=== PATIENT | female | born 1955 | race Caucasian/White ===

== ENCOUNTER 2016-07-20 07:30 | Inpatient (IN) | payer BC ==
[2016-07-19 10:24] LABS: BASOPHILS 0.3 %; BASOPHILS ABSOLUTE 0.03 10/3/uL (0.0-0.16); EOSINOPHILS 1.5 %; EOSINOPHILS ABSOLUTE 0.17 10/3/uL (0.0-0.53); HEMATOCRIT 42.2 % (36.0-48.0); IMMATURE GRANULOCYTES 0.3 %; IMMATURE GRANULOCYTES ABSOLUTE 0.03 10/3/uL (0.0-0.11); LYMPHOCYTES ABSOLUTE 2.88 10/3/uL (0.67-4.30); MEAN CORPUS HGB CONC 33.2 g/dL (32.0-36.0); MEAN CORPUSCULAR HEMOGLOB 29.2 pg (26.0-34.0); MEAN CORPUSCULAR VOLUME 88.1 fL (80-100); MONOCYTES 8.7 %; NEUTROPHILS 64.2 %; PLATELET COUNT 316 10/3/uL (150-400); RBC DISTRIBUTION WIDTH 14.3 % (12.0-16.0); RED CELL COUNT 4.79 10/6/uL (4.0-5.6); WHITE BLOOD CELLS 11.5 10/3/uL (4.5-10.5)
[2016-07-19 10:25] LABS: MANUAL DIFF NO %
[2016-07-19 10:31] LABS: INTERNATIONAL NORMAL RATI 1.1 UNITS (-); PROTIME (NOT ORD) 13.9 SEC (12.0-14.5)
[2016-07-19 10:41] LABS: A/G RATIO 0.9 (0.7-1.9); ALBUMIN 3.4 G/DL (3.5-5.0); ALKALINE PHOSPHATASE 108 U/L (45-117); BUN (BLOOD UREA NITROGEN) 11 MG/DL (6-23); CHLORIDE, SERUM 106 MMOL/L (96-112); CO2 (CARBON DIOXIDE) 26 MMOL/L (24-34); CREATININE 0.66 MG/DL (0.55-1.02); GFR AFRICAN AMERICAN 111 ML/MIN (>=60); GFR NON AFRICAN AMERICAN 95 ML/MIN (>=60); GLOBULIN 3.8 G/DL (2.5-4.1); GLUCOSE, SERUM 94 MG/DL (60-99); POTASSIUM, SERUM 4.7 MMOL/L (3.5-5.3); SGOT(AST) 24 U/L (5-40); SGPT(ALT) 35 U/L (5-65); SODIUM, SERUM 142 MMOL/L (135-148); TOTAL BILIRUBIN 0.5 MG/DL (0-1.2); TOTAL PROTEIN 7.2 G/DL (6.0-8.5)
[2016-07-19 11:25] LABS: ASCORBIC ACID (UR NOT ORDER) NEG (NEG); BILIRUBIN, URINE NEGATIVE (NEG); KETONE, URINE NEGATIVE (NEG); LEUKOCYTE ESTERASE(NOT OR NEG (NEG); WBC (NOT ORDERED) (RFLEX) 1 (0-5)
--- NOTE | ~2016-07-20 | DS ---
Discharge Summary [facility] [address] [place]. [address] NAME: NATE ISIDRO : 53 STATUS : DIS IN PAT#: [id number] AGE: 60 ADM/REG DATE : 07/20/16 MR#: [id number] REPORT SERV DATE: 07/30/16 DICTATED BY: ARMANI RAMIREZ JR. DATE: 07/29/16 REPORT STATUS : Draft TRANSCRIBED BY: EDISON DATE: 07/29/16 Data Collection from hospitalization DISCHARGE DIAGNOSES: 1. Right upper lobe non-small cell lung cancer. 2. Chronic obstructive pulmonary disease. 3. Thrombophlebitis. 4. Hypertension. 5. Hyperlipidemia. 6. Diabetes mellitus. CONSULTATIONS: None. PROCEDURES PERFORMED: Bronchoscopy, right thoracoscopy with right upper lobectomy with en bloc resection of right lower lobe superior segment. Complete mediastinal lymph node dissection bella stations 4R, 7, 9, 10R, 11R, and intercostal block 07/20/2016. PATHOLOGY: Right upper lobe and superior segment lower lobe lobectomy, combined large-cell neuroendocrine carcinoma, includes component of adenocarcinoma lymph nodes. #7 node dissection 4 lymph node fragments negative for carcinoma; lymph node 11R node biopsy, 1 lymph node negative for carcinoma; lymph node 10R node biopsy 1 lymph node negative for carcinoma; lymph node 4R node dissection, 4 lymph node fragments negative for carcinoma. MEDICATIONS: Aspirin 81 mg daily, Nexium 20 mg daily as needed, Lopressor 12.5 mg twice daily, Chantix 1 mg twice daily, Glucophage 500 mg with breakfast, ProAir two puffs every 4 hours as needed, Symbicort 2 puffs twice daily, Crestor 10 mg at bedtime, vitamin D3 2000 units daily, super B complex 1 every morning, Percocet 5/325 one or two every 4-6 hours as needed. CONDITION AT DISCHARGE: Upon discharge, she did appear to be doing well and had no complaints. DISPOSITION: She had been discharged home to continue a 4 g sodium, low-cholesterol, no concentrated carbohydrate, 1800-calorie ADA diet with activity as discussed. She was to follow up with me on 07/26/2016, follow up with her primary care physician as needed. Home health care was in place upon discharge. HOSPITAL COURSE: This 60-year-old female had presented to her primary care physician, with shortness breath, cough, fatigue, and unexplained weight loss. She was treated for a presumed pneumonia; however, when her symptoms did not improve with steroid and antibiotic therapy, a chest x-ray was obtained which noted a right lung abnormality. A CT of the chest followed the chest x-ray which demonstrated a large right upper lobe spiculated mass measuring 5.4 x 4.4 x 3.4 cm concerning for malignancy. There was also borderline 10 mm lymph nodes within the right hilum in the anterior mainstem bronchus. She was seen at the beginning of June at the [facility] and due to the size of the tumor a PET CT could not be done. She had a CT-guided needle biopsy in the first week of June with final pathology pending at that time. However, it was suggestive of malignant process. She was now admitted for surgery and further evaluation. Upon admission to the hospital, she Discharge Summary [facility] [address] [facility] [place]. [address] NAME: NATE ISIDRO : 53 STATUS : DIS IN PAT#: [id number] AGE: 60 ADM/REG DATE : 07/20/16 MR#: [id number] REPORT SERV DATE: 07/30/16 DICTATED BY: ARMANI RAMIREZ JR. DATE: 07/29/16 REPORT STATUS : Draft TRANSCRIBED BY: EDISON DATE: 07/29/16 had been taken to the operating room where she did undergo the above procedure. She had tolerated this well and was transferred to the recovery room. On postop day #1, she was awake and alert, and did appear to be doing well postoperatively. Her O2 saturation on room air was at 94%. It was felt that she may need to go home with a chest tube in place. She did have good pain control. On postop day #2, she was afebrile and her vital signs had remained stable. Her chest x-ray was noted to have been improved. On postop day 3, she remained in stable condition and the epidural was removed and she was to be discharged home with a chest tube in place with home health care. Arrangements were made for the patient to have home health care and due to her stable condition, she was then discharged with the above instructions. Information collected by: Oh CorbinIBradyT. I submit the above information as my discharge summary. GONZÁLEZ/EDISON Armani Ramirez Jr., M.D. / [id number] CC: Armani Ramirez Jr., M.D.
--- NOTE | ~2016-07-20 | OP ---
Record Of Operation [facility] [address] [place]. [address] NAME: NATE ISIDRO : 53 STATUS : ADM IN PAT#: [id number] AGE: 60 ADM/REG DATE : 07/20/16 MR#: [id number] REPORT SERV DATE: 07/21/16 DICTATED BY: ARMANI TORRES JR. DATE: 07/20/16 REPORT STATUS : Draft TRANSCRIBED BY: MODMiranda DATE: 07/20/16 DATE OF PROCEDURE: 07/20/2016 PREOPERATIVE DIAGNOSES: Right upper lobe non-small cell lung cancer, chronic obstructive pulmonary disease, thrombophlebitis, hypertension, and hyperlipidemia. POSTOPERATIVE DIAGNOSES: Right upper lobe non-small cell lung cancer, chronic obstructive pulmonary disease, thrombophlebitis, hypertension, and hyperlipidemia. NAME OF OPERATION: Bronchoscopy, right thoracoscopy with right upper lobectomy with en bloc resection of right lower lobe superior segment, complete mediastinal lymph node dissection. Dave stations 4R, 7, 9, 10R, 11R, and intercostal block. RESIDENT SURGEON: Saul Blackburn MD. TINT LAYER: Mine Yeung. ANESTHESIA: General endotracheal. ANESTHESIOLOGIST: Luc Quintero M.D. FINDINGS: The patient was noted to have extremely large tumor contained within the right upper lobe. The superior segment of the right lower lobe was adherent to the tumor and is difficult to tell whether this is an inflammatory adherence or whether tumor was crossing the fissure. The only way to get an adequate margin was to take the superior segment of the right lower lobe with the right upper lobe. The lung tissue was extremely thin related to her severe COPD. This appeared to be diffusely thin throughout all lobes. We were able to resect this thoracoscopically, but has enlarged the anterior trocar incision to get the tumor out. Grossly, margins were negative. The hilar lymph nodes had some suspicious features to them. Final pathology is pending. DETAILS OF OPERATION: After adequate general anesthesia, the patient was intubated. Bronchoscopy was performed noting no contraindications to resection. There are no endobronchial lesions. Mucous secretions were evacuated. A left-sided double-lumen endotracheal tube was then placed. The patient was then positioned in the left lateral decubitus position. The right chest was prepped and draped in routine sterile fashion. A small incision was made overlying the lower intercostal space. A separate anterior trocar incision was also made. Through these two incision sites, above findings were noted. There were a few small adhesions, which were taken down. The right upper lobe tumor was extremely large, but it was felt like we still could do this thoracoscopically. The inferior pulmonary ligament was taken down. The hilar structures were then dissected out. The right superior pulmonary vein was then dissected out and identified. The middle lobe branch was preserved while transecting the right upper lobe branch. This was done with a vascular stapler. The pulmonary arterial branches were divided with a vascular stapler. The bronchus was divided with a CELINE stapler. The fissure was then divided with multiple firings of CELINE stapler with tissue reinforcements. The specimen was placed in a specimen bag and Record Of Operation [address] [address] NAME: NATE ISIDRO : 53 STATUS : ADM IN [facility]#: [id number] AGE: 60 ADM/REG DATE : 07/20/16 MR#: [id number] REPORT SERV DATE: 07/21/16 DICTATED BY: ARMANI TORRES JR. DATE: 07/20/16 REPORT STATUS : Draft TRANSCRIBED BY: EDISON DATE: 07/20/16 brought through the anterior trocar site. Nodes from the right paratracheal, subcarinal, hilar, and inferior pulmonary ligament regions were removed. Adequate hemostasis was obtained. The chest was thoroughly irrigated with sterile water. A 20-Austrian chest tube was placed. The lung was reinflated. The right middle lobe was ensured that it was not twisted. The middle lobe vein was in its normal anatomical position. The incisions were closed with running Vicryl sutures. The skin was closed with running monofilament suture. A Dermabond dressing was applied. The procedure was terminated at this point. The patient tolerated the procedure well and taken back to recovery room in stable condition. JACOB/EDISON Armani Torres Jr., M.D. / [id number] CC: Carlos Lamb Jr.key, LACE SEWER
[~2016-07-20 07:30] MED LIST: ASAB PO; CHANTIX1 PO; CRESTOR10 PO; GLUCPH PO; NEXIUM20 M1 PO; PROAIRRESP INH; SUPER B COMP PO; SYMBICORT 160/41 INH INH; VITAMIN D31000 UNIT PO
[2016-07-20 15:18] LABS: BASOPHILS 0.1 %; BASOPHILS ABSOLUTE 0.02 10/3/uL (0.0-0.16); EOSINOPHILS 0.1 %; EOSINOPHILS ABSOLUTE 0.02 10/3/uL (0.0-0.53); HEMATOCRIT 40.3 % (36.0-48.0); HEMOGLOBIN 13.5 g/dL (12.0-16.0); IMMATURE GRANULOCYTES 0.3 %; IMMATURE GRANULOCYTES ABSOLUTE 0.06 10/3/uL (0.0-0.11); LYMPHOCYTES 5.6 %; LYMPHOCYTES ABSOLUTE 1.08 10/3/uL (0.67-4.30); MEAN CORPUS HGB CONC 33.5 g/dL (32.0-36.0); MEAN CORPUSCULAR HEMOGLOB 29.5 pg (26.0-34.0); MEAN CORPUSCULAR VOLUME 88.2 fL (80-100); MEAN PLATELET VOLUME 9.6 fL (9.2-13.0); MONOCYTES 1.1 %; MONOCYTES ABSOLUTE 0.22 10/3/uL (0.21-1.20); NEUTROPHILS 92.8 %; NEUTROPHILS ABSOLUTE 18.04 10/3/uL (2.02-8.40); PLATELET COUNT 288 10/3/uL (150-400); RBC DISTRIBUTION WIDTH 14.2 % (12.0-16.0); RED CELL COUNT 4.57 10/6/uL (4.0-5.6)
[2016-07-20 15:20] LABS: MANUAL DIFF NO %; WHITE BLOOD CELLS 19.4 10/3/uL (4.5-10.5)
[2016-07-20 15:31] LABS: BUN (BLOOD UREA NITROGEN) 13 MG/DL (6-23); CHLORIDE, SERUM 106 MMOL/L (96-112); CO2 (CARBON DIOXIDE) 24 MMOL/L (24-34); CREATININE 0.64 MG/DL (0.55-1.02); GFR AFRICAN AMERICAN 112 ML/MIN (>=60); GFR NON AFRICAN AMERICAN 96 ML/MIN (>=60); POTASSIUM, SERUM 4.7 MMOL/L (3.5-5.3); SODIUM, SERUM 139 MMOL/L (135-148)
[2016-07-20 15:32] LABS: GLUCOSE, SERUM 141 MG/DL (60-99)
[2016-07-21 06:15] LABS: BASOPHILS 0.1 %; BASOPHILS ABSOLUTE 0.02 10/3/uL (0.0-0.16); EOSINOPHILS 0.1 %; EOSINOPHILS ABSOLUTE 0.01 10/3/uL (0.0-0.53); HEMATOCRIT 39.9 % (36.0-48.0); HEMOGLOBIN 13.3 g/dL (12.0-16.0); IMMATURE GRANULOCYTES 0.5 %; IMMATURE GRANULOCYTES ABSOLUTE 0.09 10/3/uL (0.0-0.11); LYMPHOCYTES 15.4 %; LYMPHOCYTES ABSOLUTE 2.88 10/3/uL (0.67-4.30); MEAN CORPUS HGB CONC 33.3 g/dL (32.0-36.0); MEAN CORPUSCULAR HEMOGLOB 29.3 pg (26.0-34.0); MEAN CORPUSCULAR VOLUME 87.9 fL (80-100); MEAN PLATELET VOLUME 10.1 fL (9.2-13.0); MONOCYTES 8.5 %; MONOCYTES ABSOLUTE 1.59 10/3/uL (0.21-1.20); NEUTROPHILS 75.4 %; NEUTROPHILS ABSOLUTE 14.12 10/3/uL (2.02-8.40); PLATELET COUNT 299 10/3/uL (150-400); RBC DISTRIBUTION WIDTH 14.1 % (12.0-16.0); RED CELL COUNT 4.54 10/6/uL (4.0-5.6); WHITE BLOOD CELLS 18.7 10/3/uL (4.5-10.5)
[2016-07-21 06:17] LABS: MANUAL DIFF NO %
[2016-07-21 06:32] LABS: BUN (BLOOD UREA NITROGEN) 11 MG/DL (6-23); CALCIUM, SERUM 9.6 MG/DL (8.5-10.4); CHLORIDE, SERUM 106 MMOL/L (96-112); CO2 (CARBON DIOXIDE) 23 MMOL/L (24-34); CREATININE 0.67 MG/DL (0.55-1.02); GFR AFRICAN AMERICAN 110 ML/MIN (>=60); GFR NON AFRICAN AMERICAN 95 ML/MIN (>=60); POTASSIUM, SERUM 4.1 MMOL/L (3.5-5.3); SODIUM, SERUM 139 MMOL/L (135-148)
[2016-07-21 06:34] LABS: GLUCOSE, SERUM 112 MG/DL (60-99)
[2016-07-23 05:10] LABS: BASOPHILS 0.2 %; BASOPHILS ABSOLUTE 0.03 10/3/uL (0.0-0.16); EOSINOPHILS 2.9 %; EOSINOPHILS ABSOLUTE 0.46 10/3/uL (0.0-0.53); HEMOGLOBIN 12.4 g/dL (12.0-16.0); IMMATURE GRANULOCYTES 0.5 %; IMMATURE GRANULOCYTES ABSOLUTE 0.08 10/3/uL (0.0-0.11); LYMPHOCYTES 20.1 %; LYMPHOCYTES ABSOLUTE 3.16 10/3/uL (0.67-4.30); MEAN CORPUS HGB CONC 33.5 g/dL (32.0-36.0); MEAN CORPUSCULAR HEMOGLOB 29.6 pg (26.0-34.0); MEAN CORPUSCULAR VOLUME 88.3 fL (80-100); MEAN PLATELET VOLUME 9.9 fL (9.2-13.0); MONOCYTES 11.2 %; MONOCYTES ABSOLUTE 1.76 10/3/uL (0.21-1.20); NEUTROPHILS 65.1 %; NEUTROPHILS ABSOLUTE 10.22 10/3/uL (2.02-8.40); PLATELET COUNT 292 10/3/uL (150-400); RBC DISTRIBUTION WIDTH 14.2 % (12.0-16.0); RED CELL COUNT 4.19 10/6/uL (4.0-5.6); WHITE BLOOD CELLS 15.7 10/3/uL (4.5-10.5)
[2016-07-23 05:12] LABS: BUN (BLOOD UREA NITROGEN) 10 MG/DL (6-23); CALCIUM, SERUM 9.6 MG/DL (8.5-10.4); CHLORIDE, SERUM 101 MMOL/L (96-112); CO2 (CARBON DIOXIDE) 28 MMOL/L (24-34); CREATININE 0.64 MG/DL (0.55-1.02); GFR AFRICAN AMERICAN 112 ML/MIN (>=60); GFR NON AFRICAN AMERICAN 96 ML/MIN (>=60); GLUCOSE, SERUM 113 MG/DL (60-99); POTASSIUM, SERUM 4.3 MMOL/L (3.5-5.3); SODIUM, SERUM 137 MMOL/L (135-148)
[2016-07-23 05:20] LABS: MANUAL DIFF NO %
[2016-07-23] MEDS ORDERED: LOP25 PO (10:02)
[2016-07-23] MEDS ORDERED: PCET PO (10:05)
== END 2016-07-23 17:26 | disposition home or self-care (01) | DRG 164 ==
LOC: SDC/OF 07:30 → PACU 15:06 → 5NO 17:24
PROVIDERS: Thoracic Surgery (Cardiothoracic Vascular Surgery)
PROC: 0BJ08ZZ Inspection of Tracheobronchial Tree, Via Natural or Artificial Opening Endoscopic (ICD-10-PCS; 2016-07-20)
PROC: 3E0T3BZ Introduction of Anesthetic Agent into Peripheral Nerves and Plexi, Percutaneous Approach (ICD-10-PCS; 2016-07-20)
PROC: 0BTC4ZZ Resection of Right Upper Lung Lobe, Percutaneous Endoscopic Approach (ICD-10-PCS; principal; 2016-07-20 09:45)
PROC: 07B74ZZ Excision of Thorax Lymphatic, Percutaneous Endoscopic Approach (ICD-10-PCS; 2016-07-20 09:45)
DX: C34.11 Malignant neoplasm of upper lobe, right bronchus or lung (principal); J93.82 Other air leak; J44.9 Chronic obstructive pulmonary disease, unspecified; I80.9 Phlebitis and thrombophlebitis of unspecified site; I10 Essential (primary) hypertension; E78.5 Hyperlipidemia, unspecified; Z87.891 Personal history of nicotine dependence
CPT/HCPCS: 36415; 71010; 71020; 80048; 80053; 81001; 82962; 83036; 83735; 85025; 85610; 86850; 86900; 86901; 87641; 88305; 88307; 88309; 88313; 88341; 88342; 88344; 88360; 93005; 94640; A9270-GY; J0690; J1644; J2250; J2300; J2710; J2795; J3010